=== PATIENT | female | born 1965 | race African-American/Black ===

== ENCOUNTER 2017-12-16 08:43 | Emergency (ER) | payer MEDICAID ==
[~2017-12-16] VITALS: Ht 162.6 cm; Wt 63.0 kg
[~2017-12-16 08:43] MED LIST: [UNRECOGNIZED DRUG - OTHER]
[2017-12-16 12:27] VITALS: BP 110/61
== END 2017-12-16 11:58 | disposition home or self-care (01) ==
LOC: ER 08:43
DX: S20.219A Contusion of unspecified front wall of thorax, initial encounter (principal); J45.909 Unspecified asthma, uncomplicated; K21.9 Gastro-esophageal reflux disease without esophagitis; G43.909 Migraine, unspecified, not intractable, without status migrainosus; V49.9XXA Car occupant (driver) (passenger) injured in unspecified traffic accident, initial encounter; Y93.89 Activity, other specified; Y92.89 Other specified places as the place of occurrence of the external cause; Y99.8 Other external cause status; Z88.6 Allergy status to analgesic agent
CPT/HCPCS: 99283